=== PATIENT | male | born 1955 | race Two or more races ===

== ENCOUNTER 2017-10-19 08:32 | Day surgery (SDC) | payer OTHER ==
[~2017-10-19] VITALS: Ht 175.3 cm; Wt 87.4 kg
[~2017-10-19 08:32] MED LIST: Advil200 M1; DIPATR PO; OMEP20ER; ONDA8ODT MM; TERB250; Zofran Odt4 MG SL
[2017-10-19] MEDS ORDERED: Advil200 M1 (08:59)
== END 2017-10-19 11:31 | disposition home or self-care (01) ==
LOC: ORSCSDS 08:32
PROVIDERS: Orthopaedic Surgery
PROC: 0SBC4ZZ Excision of Right Knee Joint, Percutaneous Endoscopic Approach (ICD-10-PCS; principal; 2017-10-19 10:00)
DX: S83.241D Other tear of medial meniscus, current injury, right knee, subsequent encounter (principal); M17.11 Unilateral primary osteoarthritis, right knee; Z87.891 Personal history of nicotine dependence
CPT/HCPCS: J0171; J0690; J1100; J1885; J2250; J2405; J3010; J7120